=== PATIENT | female | born 1985 | race Caucasian/White ===

== ENCOUNTER 2018-07-25 12:15 | Observation (INO) ==
[2018-07-24 14:54] LABS: Immature Granulocytes % 0.4 % (0-4)
[2018-07-24 14:56] LABS: Basophils % 0.1 %; Eosinophils % 0.2 %; Hematocrit 39.5 % (35.3-44.9); Hemoglobin 12.3 g/dL (11.5-15.4); Immature Platelets 42.5 % (1.1-6.1); Lymphocytes # 3.3 K/mcL (0.6-4.6); Lymphocytes % 30.5 %; Mean Corpuscular HGB Conc 31.1 g/dL (31.6-35.5); Mean Corpuscular Hemoglobin 24.5 pg (28.0-33.3); Mean Corpuscular Volume 78.7 fL (83.0-100.0); Monocytes # 0.6 K/mcL (0.0-1.3); Monocytes % 5.3 %; Neutrophils # 6.9 K/mcL (1.6-8.9); Platelet Count 112 K/mcL (140-400); Red Blood Count 5.02 M/mcL (3.82-4.97); Red Cell Distribution Width 14.9 % (11.5-14.5); Segmented Neutrophils % 63.5 %
[2018-07-24 15:10] LABS: Alanine Aminotransferase 14 Units/L (7-52); Aspartate Amino Transferase 20 Units/L (13-39); BUN/Creatinine Ratio 10 (6-26); Blood Urea Nitrogen 9 mg/dL (6-20); Lactate Dehydrogenase 152 Units/L (140-271); Uric Acid 4.8 mg/dL (2.3-7.6); eGFR For Non-African Americans > 60 (> 60)
[2018-07-24 15:18] LABS: Large Platelets Present (Not Present); Platelet Estimate Slight Decrease (Normal)
[2018-07-24] MEDS: Acetaminophen 325 MG TABLET PO PRN (17:49)
--- NOTE | 2018-07-24 20:05 | OB/GYN History & Physical ---
Date of Encounter: 07/24/18 Time of Encounter: 20:03 Assessment and Plan (1) 31 weeks gestation of Current visit: Yes Status: Acute Pt reports + GFM, no vb or lof. (2) Chronic hypertension affecting Current visit: Yes Status: Acute Patient with chronic hypertension recent with worsening blood pressures as well as creatinine. She will be admitted for 24-hour urine protein collection. Her LFTs are normal her creatinine is 0.9. Her platelet count is low at 1 1228 weeks was 148 document find evidence of any other platelet results. He discussed with patient she may have gestational hypertension versus severe preeclampsia. We will repeat labs the morning if this is worsening she may require transfer. (3) Gestational diabetes Current visit: Yes Status: Acute Patient with markedly elevated blood sugars and was to have Humalog insulin 20 units subcutaneous at breakfast and dinner started on Humulin N insulin 46 units and 22 units at bedtime started yesterday however she can write a prior authorization area will be started on these blood sugars and blood sugar will be followed closely on hospital. We will check a hemoglobin A1c in morning. Qualifiers: Gestational diabetes mellitus control: insulin-controlled Trimester: third trimester Qualified Code(s): O24.414 - Gestational diabetes mellitus in , insulin controlled History of Present Illness Chief complaint: 31 weeks gestation with hypertension rule out superimposed preeclampsia, re HPI: Ms. Peterson is a 32 year old female 1 para 0 female at 30 one half weeks gestation admitted for observation. She has chronic hypertension has been on labetalol 10 mg twice a day and Aldomet 250 3 times a day. She also was recently diagnosed with gestational diabetes insulin was ordered but has not been started. She was seen by maternal- medicine at [facility], yesterday and it was advised to be admitted for 24 urine as well as with regulation of blood pressure control her blood pressure medicine had been increased to labetalol 400 twice a day from 200 twice a day and Aldomet 250 3 times a day was continued. Advised that she start Humalog insulin 20 units subcutaneous with breakfast and dinner and human and 46 units a.m. and 22 units that time. On arrival she reports 5 feet no other edema she denies headaches vision changes prepped quadrant pain nausea and vomiting. She reports good movement and denies contractions or bleeding. Past Med Surg Social Fam HX - Past Medical History Medical history: no medical history Psychiatric history: no psych history - Past Surgical History Additional surgical history: rotator cuff - Social History Smoking Status: Never smoker Smokeless Tobacco Status: No Alcohol use: none Obstetrical History - Pregnancies : 1 Medications and Allergies Hydrocodone/Acetaminophen [Woodson 5-325 Tablet] 1 tab PO TID PRN #15 tab 05/12/16 [Rx] diazePAM [Valium] 5 mg PO TID #10 tablet 05/12/16 [Rx] Allergy/AdvReac Type Severity Reaction Status Date / Time No Known Allergies Allergy Verified 05/12/16 10:58 Exam - Vital Signs Vital signs: Initial Vital Signs Temp Pulse Resp BP Pulse Ox 98.0 F 95 16 145/66 98 07/24/18 12:45 07/24/18 12:45 07/24/18 12:45 07/24/18 12:45 07/24/18 12:45 - Constitutional Constitutional: well developed - HEENT HEENT: EOMI, PERRL - Neck Neck exam: full ROM - Lungs Respiratory exam: CTAB - Cardiovascular Cardiovascular exam: RRR - Abdomen Abdomen: Present: gravid - Extremities Extremities exam: full ROM Deep Tendon Reflex Grade: 2+ Normal - Uterus Uterus exam: Present: enlarged Results Result Diagrams: 07/24/18 14:45 07/24/18 14:45 Abnormal lab results RBC 5.02 M/mcL (3.82-4.97) H 07/24/18 14:45 MCV 78.7 fL (83.0-100.0) L 07/24/18 14:45 MCH 24.5 pg (28.0-33.3) L 07/24/18 14:45 MCHC 31.1 g/dL (31.6-35.5) L 07/24/18 14:45 RDW 14.9 % (11.5-14.5) H 07/24/18 14:45 Plt Count 112 K/mcL (140-400) L 07/24/18 14:45 Platelet Estimate Slight Decrease (Normal) L 07/24/18 14:45 Large Platelets Present (Not Present) A 07/24/18 14:45 Immature Plt Fraction 42.5 % (1.1-6.1) H 07/24/18 14:45 POC Glucose 167 mg/dL (70-99) H 07/24/18 13:52 All other labs normal.
[2018-07-25] MEDS: Acetaminophen 325 MG TABLET PO PRN (00:13)
[2018-07-25 08:03] LABS: Estimated Average Glucose 200 mg/dl; Hemoglobin A1C 8.6 %
[2018-07-25 10:29] VITALS: BP 142/97
[2018-07-25 10:34] LABS: Basophils % 0.1 %; Eosinophils % 0.3 %; Immature Granulocytes % 0.5 % (0-4); Mean Corpuscular Volume 78.9 fL (83.0-100.0)
[2018-07-25 10:36] LABS: Hematocrit 39.7 % (35.3-44.9); Hemoglobin 12.5 g/dL (11.5-15.4); Immature Platelets 43.4 % (1.1-6.1); Lymphocytes % 33.8 %; Mean Corpuscular HGB Conc 31.5 g/dL (31.6-35.5); Mean Corpuscular Hemoglobin 24.9 pg (28.0-33.3); Monocytes # 0.4 K/mcL (0.0-1.3); Monocytes % 4.7 %; Neutrophils # 5.4 K/mcL (1.6-8.9); Platelet Count 107 K/mcL (140-400); Red Blood Count 5.03 M/mcL (3.82-4.97); Red Cell Distribution Width 14.9 % (11.5-14.5); Segmented Neutrophils % 60.6 %
[2018-07-25 10:54] LABS: Alanine Aminotransferase 15 Units/L (7-52); Aspartate Amino Transferase 21 Units/L (13-39); BUN/Creatinine Ratio 10 (6-26); Blood Urea Nitrogen 9 mg/dL (6-20); Lactate Dehydrogenase 145 Units/L (140-271); Uric Acid 4.8 mg/dL (2.3-7.6); eGFR For Non-African Americans > 60 (> 60)
--- NOTE | 2018-07-25 11:58 | Discharge Summary ---
Date of Encounter: 07/25/18 Time of Encounter: 12:03 - Discharge Diagnosis (1) Pre-eclampsia superimposed on chronic hypertension Priority: Primary Status: Acute Comments: Blood pressures intermittently severe range despite increasing doses of PO medications with additional IV doses. This am pt has had Labetalol 400mg and Aldomet 250mg PO at 0915. Most recent blood pressures 161/103, 172/104, 161/103. Labetalol 10mg IV ordered now per consultation with Dr. Beatty. Magnesium started now with 4g loading dose followed by 2g per hour. Pt being transferred to [facility] at this time. Accepting [facility] Dr. Sandoval. POC in collaboration with Dr. Beatty. (2) 31 weeks gestation of Priority: Secondary Status: Acute (3) Chronic hypertension affecting Priority: Secondary Status: Acute (4) Gestational diabetes Priority: Secondary Status: Acute Comments: Suspect class B DM given one hour glucola 334. A1C today is 8.6. Most recent accucheck 179 following Humulin N 30 units and Lispro 20 units this am. Plan to hold off on celestone at this time due to poorly controlled blood sugars per discussion with Dr. Sandoval. Qualifiers: Gestational diabetes mellitus control: insulin-controlled Trimester: third trimester Qualified Code(s): O24.414 - Gestational diabetes mellitus in [facility], insulin controlled - Discharge Medications Home Medications: Labetalol [Trandate] 400 mg PO BID 07/25/18 [History] Levothyroxine [Synthroid] 25 mcg PO 07/25/18 [History] Methyldopa [Aldomet] 250 mg PO TID 07/25/18 [History] Ondansetron HCl [Zofran] 4 mg PO Q8HR PRN 07/25/18 [History] Vit #108/Iron/FA [ One Tablet] 1 each PO 07/25/18 [History] Allergies/Adverse Reactions: Allergy/AdvReac Type Severity Reaction Status Date / Time No Known Allergies Allergy Verified 05/12/16 10:58 Data Procedures and tests throughout hospitalization: Laboratory Tests 07/24/18 07/24/18 07/24/18 13:52 14:45 14:45 WBC 10.9 RBC 5.02 H Hgb 12.3 Hct 39.5 MCV 78.7 L MCH 24.5 L MCHC 31.1 L RDW 14.9 H Plt Count 112 L MPV Immature Gran % 0.4 Seg Neutrophils % 63.5 Lymphocytes % 30.5 Monocytes % 5.3 Eosinophils % 0.2 Basophils % 0.1 Neutrophils # 6.9 Lymphocytes # 3.3 Monocytes # 0.6 Eosinophils # 0.0 Basophils # 0.0 Platelet Estimate Slight Decrease L Large Platelets Present A Immature Plt Fraction 42.5 H BUN 9 Creatinine 0.91 Est GFR ( Amer) > 60 Est GFR (Non-Af Amer) > 60 BUN/Creatinine Ratio 10 POC Glucose 167 H Est Mean Plasma Glucose Hemoglobin A1c Uric Acid 4.8 AST 20 ALT 14 Lactate Dehydrogenase 152 18 07/25/18 07/25/18 20:01 05:50 07:45 WBC RBC Hgb Hct MCV MCH MCHC RDW Plt Count MPV Immature Gran % Seg Neutrophils % Lymphocytes % Monocytes % Eosinophils % Basophils % Neutrophils # Lymphocytes # Monocytes # Eosinophils # Basophils # Platelet Estimate Large Platelets Immature Plt Fraction BUN Creatinine Est GFR ( Amer) Est GFR (Non-Af Amer) BUN/Creatinine Ratio POC Glucose 175 H 141 H Est Mean Plasma Glucose 200 Hemoglobin A1c 8.6 H Uric Acid AST ALT Lactate Dehydrogenase 07/25/18 07/25/18 07/25/18 09:16 10:02 10:02 WBC 8.9 RBC 5.03 H Hgb 12.5 Hct 39.7 MCV 78.9 L MCH 24.9 L MCHC 31.5 L RDW 14.9 H Plt Count 107 L MPV TNP Immature Gran % 0.5 Seg Neutrophils % 60.6 Lymphocytes % 33.8 Monocytes % 4.7 Eosinophils % 0.3 Basophils % 0.1 Neutrophils # 5.4 Lymphocytes # 3.0 Monocytes # 0.4 Eosinophils # 0.0 Basophils # 0.0 Platelet Estimate Large Platelets Immature Plt Fraction 43.4 H BUN 9 Creatinine 0.94 Est GFR ( Amer) > 60 Est GFR (Non-Af Amer) > 60 BUN/Creatinine Ratio 10 POC Glucose 208 H Est Mean Plasma Glucose Hemoglobin A1c Uric Acid 4.8 AST 21 ALT 15 Lactate Dehydrogenase 145 07/25/18 10:22 WBC RBC Hgb Hct MCV MCH MCHC RDW Plt Count MPV Immature Gran % Seg Neutrophils % Lymphocytes % Monocytes % Eosinophils % Basophils % Neutrophils # Lymphocytes # Monocytes # Eosinophils # Basophils # Platelet Estimate Large Platelets Immature Plt Fraction BUN Creatinine Est GFR ( Amer) Est GFR (Non-Af Amer) BUN/Creatinine Ratio POC Glucose 179 H Est Mean Plasma Glucose Hemoglobin A1c Uric Acid AST ALT Lactate Dehydrogenase Labs on day of discharge: Labs from last 24 hours 07/25/18 07/25/18 07/25/18 10:22 10:02 10:02 WBC 8.9 RBC 5.03 H Hgb 12.5 Hct 39.7 MCV 78.9 L MCH 24.9 L MCHC 31.5 L RDW 14.9 H Plt Count 107 L MPV TNP Immature Gran % 0.5 Seg Neutrophils % 60.6 Lymphocytes % 33.8 Monocytes % 4.7 Eosinophils % 0.3 Basophils % 0.1 Neutrophils # 5.4 Lymphocytes # 3.0 Monocytes # 0.4 Eosinophils # 0.0 Basophils # 0.0 Platelet Estimate Large Platelets Immature Plt Fraction 43.4 H BUN 9 Creatinine 0.94 Est GFR ( Amer) > 60 Est GFR (Non-Af Amer) > 60 BUN/Creatinine Ratio 10 POC Glucose 179 H Est Mean Plasma Glucose Hemoglobin A1c Uric Acid 4.8 AST 21 ALT 15 Lactate Dehydrogenase 145 07/25/18 07/25/18 07/25/18 09:16 07:45 05:50 WBC RBC Hgb Hct MCV MCH MCHC RDW Plt Count MPV Immature Gran % Seg Neutrophils % Lymphocytes % Monocytes % Eosinophils % Basophils % Neutrophils # Lymphocytes # Monocytes # Eosinophils # Basophils # Platelet Estimate Large Platelets Immature Plt Fraction BUN Creatinine Est GFR ( Amer) Est GFR (Non-Af Amer) BUN/Creatinine Ratio POC Glucose 208 H 141 H Est Mean Plasma Glucose 200 Hemoglobin A1c 8.6 H Uric Acid AST ALT Lactate Dehydrogenase 07/24/18 07/24/18 07/24/18 20:01 14:45 14:45 WBC 10.9 RBC 5.02 H Hgb 12.3 Hct 39.5 MCV 78.7 L MCH 24.5 L MCHC 31.1 L RDW 14.9 H Plt Count 112 L MPV Immature Gran % 0.4 Seg Neutrophils % 63.5 Lymphocytes % 30.5 Monocytes % 5.3 Eosinophils % 0.2 Basophils % 0.1 Neutrophils # 6.9 Lymphocytes # 3.3 Monocytes # 0.6 Eosinophils # 0.0 Basophils # 0.0 Platelet Estimate Slight Decrease L Large Platelets Present A Immature Plt Fraction 42.5 H BUN 9 Creatinine 0.91 Est GFR ( Amer) > 60 Est GFR (Non-Af Amer) > 60 BUN/Creatinine Ratio 10 POC Glucose 175 H Est Mean Plasma Glucose Hemoglobin A1c Uric Acid 4.8 AST 20 ALT 14 Lactate Dehydrogenase 152 07/24/18 13:52 WBC RBC Hgb Hct MCV MCH MCHC RDW Plt Count MPV Immature Gran % Seg Neutrophils % Lymphocytes % Monocytes % Eosinophils % Basophils % Neutrophils # Lymphocytes # Monocytes # Eosinophils # Basophils # Platelet Estimate Large Platelets Immature Plt Fraction BUN Creatinine Est GFR ( Amer) Est GFR (Non-Af Amer) BUN/Creatinine Ratio POC Glucose 167 H Est Mean Plasma Glucose Hemoglobin A1c Uric Acid AST ALT Lactate Dehydrogenase Date of admission: 07/24/18 12:33 Primary care physician: Jw Barton DO Discharging clinician: Soni Jay Anticipated date of discharge: 07/25/18 - Patient Status Disposition: Transfer Short-Term Hosp Condition: Fair Overall status at discharge: patient is not back to baseline - Discharge Instructions Follow Up With: Jw Barton DO [Primary Care Provider] - Bertrand Judd MD [Partnered Physician] - Hospital Course INTERVENTIONAL PHYSIATRIST Reason for admission: other (chronic hypertension, gestational diabetes) Discharge diagnosis: other (superimposed preeclampsia, chronic hypertension, gestational diabetes) Hospital course: Ms. Peterson is a 32 year old female 1 para 0 female at 30 one half weeks gestation admitted for observation. She has chronic hypertension has been on labetalol 100 mg twice a day and Aldomet 250 3 times a day. She also was recently diagnosed with gestational diabetes insulin was ordered but has not been started. She was seen by maternal- medicine at [facility] 07/23/18 and it was advised to be admitted for 24 urine as well as with regulation of blood pressure control her blood pressure medicine had been increased to labetalol 400 twice a day from 200 twice a day and Aldomet 250 3 times a day was continued. Advised that she start Humalog insulin 20 units subcutaneous with breakfast and dinner and human and 46 units a.m. and 22 units that time. She reports that she had some visual floaters on Monday when she saw M and that she had a headache all day yesterday but denies any s/sx preeclampsia today. She reports good FM. No leaking, bleeding or contractions. Pt remained hypertensive despite medications and plan to transfer to [facility] for possible delivery for superimposed preeclampsia. Time Attestation: Total time spent providing and/or coordinating discharge services: Exam - Constitutional Vitals: Temp Pulse Resp BP Pulse Ox 98.1 F 103 16 142/97 97 07/25/18 10:29 07/25/18 10:29 07/25/18 10:29 07/25/18 10:29 07/25/18 10:29 General appearance IM: A&O X 3 - Respiratory Respiratory exam: Present: CTAB - Cardiovascular Cardiovascular exam IM: Present: RRR, tachycardia (pulse 104) - GI/Abdominal GI/Abdominal exam IM: soft - Extremities Exam Extremities exam IM: Present: pedal edema (mild edema bilaterally, reflexes 2+), radial pulses palpable and symmetrical Additional comments: no clonus - Neurological Exam Neurological exam: normal gait, oriented X3
[~2018-07-25 12:15] MED LIST: *HR* Dextrose 50 % in Water (Syg) 50 ML SYRINGE IVP PRN; *HR* Labetalol 20 MG/4 ML SYRINGE IVP ONE; Calcium Gluconate 1,000 MG/10 ML VIAL IVPB ONE; D5% in Water 1,000 ML IVC PRN; Dextrose Gel 15 GM/37.5 ML TUBE PO PRN; Insulin LISPRO 300 UNITS/3 ML VIAL SQ SCH; Insulin NPH 100 UNIT/ML (x5UNIT) SQ ONE; Insulin NPH 100 UNIT/ML (x5UNIT) SQ SCH; Levothyroxine 25 MCG TABLET PO SCH; Magnesium Sulfate 20 gm/500mL 20 GM/500 ML IV.SOLN IVC SCH; Ringers Solution, Lactated 1,000 ML ONE
[2018-07-25 13:56] LABS: Total Volume 24 Hour,Urine 2.05 Liters (0.60-1.60)
== END 2018-07-25 13:10 | disposition short-term general hospital (02) ==
LOC: 1NENUOBS → 1NENULAB 12:15
PROVIDERS: ADMIT Obstetrics & Gynecology; ATTEND Obstetrics & Gynecology